=== PATIENT | female | born 1965 | race Caucasian/White ===

== ENCOUNTER → 2020-08-22 08:15 | Outpatient (CLI) | payer OTHER, SELFPAY ==
--- NOTE | ~2020-08-22 | XR_ITS ---
EXAMINATION: XR chest 2V DATE: 08/22/2020 08:25 INDICATION: Left-sided chest pain TECHNIQUE: PA and lateral views of the chest are obtained. COMPARISON: 09/09/2019 FINDINGS: The lungs are free of acute opacities. There is no pleural effusion or pneumothorax. The ca rdiomediastinal silhouette is normal. Surgical clips in the right upper quadrant are likely from prio r cholecystectomy. IMPRESSION: 1. No acute cardiopulmonary abnormality. Reviewed, dictated and finalized at location A. 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
== END ==
PROVIDERS: PCP Family Medicine; Visit Provider Family Medicine
DX: R07.9 Chest pain, unspecified (principal)
CPT/HCPCS: 71046

== ENCOUNTER → 2020-09-11 16:50 | Outpatient (CLI) | payer OTHER, SELFPAY ==
--- NOTE | ~2020-09-11 | MM_ITS ---
EXAMINATION: MM screening matthew BI w earnestine HISTORY: Screening mammogram TECHNIQUE: Craniocaudal and mediolateral oblique 3-D tomosynthesis images were obtained and synthetic 2-D images were generated. CAD analysis was submitted and interpreted. COMPARISON: No prior mammogram is available for comparison at this institution. BREAST PARENCHYMAL COMPOSITION: There are scattered areas of fibroglandular density. FINDINGS: There are a few benign calcifications on the right. There is no evidence of suspicious mass , calcification, or architectural distortion to suggest malignancy in either breast. There has been n o suspicious interval change. IMPRESSION: 1. No mammographic evidence of malignancy. 2. Recommend routine screening mammography in one year. BI-RADS Category 2: Benign finding(s). Reviewed, dictated and finalized at location A. 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
== END ==
PROVIDERS: PCP Family Medicine; Visit Provider Family Medicine
DX: Z12.31 Encounter for screening mammogram for malignant neoplasm of breast (principal)
CPT/HCPCS: 77063; 77067

== ENCOUNTER → 2020-09-18 13:24 | Outpatient (CLI) | payer OTHER, SELFPAY ==
--- NOTE | ~2020-09-18 | CT_ITS ---
EXAMINATION: CT chest wo con DATE: 09/18/2020 13:43 INDICATION: Pleurisy TECHNIQUE: Computed tomography (CT) of the chest was performed without intravenous contrast. The dose -length product was 184.56 mGy-cm. Automated exposure control and iterative reconstruction technique were employed. COMPARISON: Chest dated 08/22/2020 FINDINGS: No significant pleural or pericardial effusion. Heart size normal. No thoracic lymphadenopa thy. No endobronchial lesion. No pneumothorax. No focal airspace consolidation. No suspicious pulmona ry nodules or masses. There are cholecystectomy clips. IMPRESSION: 1. No acute cardiopulmonary disease. No findings to account for patient's symptoms. Reviewed, dictated and finalized at location B. IATIVE SENIOR NP IMPRESSION: 1. No acute cardiopulmonary disease. No findings to account for patient's sympt oms.
== END ==
PROVIDERS: PCP Family Medicine; Visit Provider Family Medicine
DX: R09.1 Pleurisy (principal)
CPT/HCPCS: 71250

== ENCOUNTER → 2021-10-02 13:26 | Outpatient (CLI) | payer OTHER, SELFPAY ==
--- NOTE | ~2021-10-02 | MM_ITS ---
EXAMINATION: MM screening matthew BI w earnestine HISTORY: Screening mammogram TECHNIQUE: Craniocaudal and mediolateral oblique 3-D tomosynthesis images were obtained and synthetic 2-D images were generated. CAD analysis was submitted and interpreted. COMPARISON: 09/07/2020, 09/09/2019, 07/30/2018 bilateral screening mammogram examinations BREAST PARENCHYMAL COMPOSITION: There are scattered areas of fibroglandular density. FINDINGS: There is no evidence of suspicious mass, calcification, or architectural distortion to sugg est malignancy in either breast. There has been no suspicious interval change. IMPRESSION: 1. No mammographic evidence of malignancy. 2. Recommend routine screening mammography in one year. BI-RADS Category 1: Negative Reviewed, dictated and finalized at location A. 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
== END ==
PROVIDERS: PCP Family Medicine; Visit Provider Family Medicine
DX: Z12.31 Encounter for screening mammogram for malignant neoplasm of breast (principal)
CPT/HCPCS: 77063; 77067

== ENCOUNTER → 2022-09-24 14:09 | Outpatient (CLI) | payer OTHER, SELFPAY ==
--- NOTE | ~2022-09-24 | DEXA_ITS ---
Bone Density Report Name: JANINA IZAGUIRRE Age: 57 Sex: Female Ethnicity: White Date of : 1965 Indication: postmenopausal; screening for osteoporosis; hysterectomy; Referring Provider: INOCENCIA RIVAS Study: Bone densitometry was performed. Exam Date: September 24, 2022 Accession number: [id number] Bone Density: Region BMD T-score Z-score Classification AP Spine (L1-L4) 0.962 -0.8 0.6 Normal Femoral Neck (Left) 0.743 -1.0 0.3 Normal Total Hip (Left) 0.897 -0.4 0.6 Normal Femoral Neck (Right) 0.695 -1.4 -0.1 Osteopenia Total Hip (Right) 0.889 -0.4 0.5 Normal Total Hip Mean 0.893 -0.4 0.6 Normal World Health Organization criteria for BMD impression classify patients as: Normal (T-score at or above -1.0), Osteopenia (T-score between -1.0 and -2.5), or Osteoporosis (T-score at or below -2.5). 10-year Fracture Risk(1): Major Osteoporotic Fracture 7.6% Hip Fracture 0.6% Reported Risk Factors: [place] (), Neck BMD=0.695, BMI=28.0 (1) FRAX(R) Version 3.08. Fracture probability calculated for an untreated patient. Fracture probability may be lower if the patient has received treatment. Clinical Information Provided by Patient: Has used the following medications: Vitamin D Has the following medical conditions: Hysterectomy, CERVICAL CA - AGE 31 Patient maximum height was 67 Menopause Age: 31 No regular weight bearing exercise Drinks caffeinated beverages Onset of menses at age 9 Number of children 2 Impression: The patient has low bone mass, based on the Right Femoral Neck T-score. The patient has an estimated ten-year risk of hip fracture of 0.6% and an estimated ten-year risk of major fracture of 7.6%, based on the WHO FRAX algorithm. Discussion: BONE DENSITY IS LOW AT ONE OR MORE SKELETAL SITES. This patient's lowest T-score is low at one or more skeletal sites. It meets the World Health Organization's (WHO) criteria for ?low bone mass? (T-score between -1.0 and -2.5). The patient's 10-year risk of fracture as calculated by FRAX is less than the threshold where pharmacological therapy is recommended by the National Osteoporosis Foundation (NOF). However, all treatment decisions require clinical judgment and consideration of individual patient factors, including patient preferences, comorbidities, previous drug use, risk factors not captured in the FRAX model (e.g., frailty, falls, vitamin D deficiency, increased bone turnover, interval significant decline in bone density) and possible under or overestimation of fracture risk by FRAX. The patient should follow a healthful lifestyle (good nutrition with adequate calcium and vitamin D, and appropriate weight-bearing exercise). Follow-Up: Consider repeating this study in 2 to 3 years to reassess this patient's status, or soon
== END ==
PROVIDERS: PCP Family Medicine; Visit Provider Family Medicine
DX: Z78.0 Asymptomatic menopausal state (principal); M85.851 Other specified disorders of bone density and structure, right thigh
CPT/HCPCS: 77080

== ENCOUNTER → 2022-10-02 13:22 | Outpatient (CLI) | payer OTHER, SELFPAY ==
--- NOTE | ~2022-10-02 | MM_ITS ---
EXAMINATION: MM screening matthew BI w earnestine HISTORY: Screening TECHNIQUE: Craniocaudal and mediolateral oblique 3-D tomosynthesis images were obtained and synthetic 2-D images were generated. CAD analysis was submitted and interpreted. COMPARISON: Comparison to multiple prior studies sequentially, with oldest reviewed study dated 12/2015. BREAST PARENCHYMAL COMPOSITION: There are scattered areas of fibroglandular density. FINDINGS: There is no evidence of suspicious mass, calcification, or architectural distortion to sugg est malignancy in either breast. There has been no suspicious interval change. IMPRESSION: 1. No mammographic evidence of malignancy. 2. Recommend routine screening mammography in one year. BI-RADS Category 1: Negative Reviewed, dictated and finalized at location B. INTEGRATION ARCHITECT
== END ==
PROVIDERS: PCP Family Medicine; Visit Provider Family Medicine
DX: Z12.31 Encounter for screening mammogram for malignant neoplasm of breast (principal)
CPT/HCPCS: 77063; 77067

== ENCOUNTER 2023-08-10 09:24 | Outpatient (CLI) | payer OTHER, SELFPAY ==
--- NOTE | ~2023-08-10 | NM_ITS ---
NM stress w perf spect multi Procedure: The patient was stressed using Modified Darwin protocol. Prior to the end of exercise 10.4 mCi Tc 99m IV administered. Rest imaging performed following administration of 31.8 mCi Tc 99m IV. Images were reformatted into short axis, horizontal and vertical long axis sections for visual and q uantitative analysis. Indication: Wrist pain Comparison: None Findings: Computer assisted qualitative and quantitative analysis of the immediate and delayed images revealed normal left ventricular perfusion without evidence of fixed or reversible perfusion abnorma lity to suggest ischemia or infarction. Normal left ventricular cavity size, wall motion and ejectio n fraction. Left ventricular ejection fraction measures 81%. Impression: 1: No scintigraphic evidence of resting or stress induced perfusion abnormality. 2: Normal left ventricle ejection fraction measuring 81 %. Reviewed, dictated and finalized at location B. Impression: 1: No scintigraphic evidence of resting or stress induced perfusion abnormality . 2: Normal left ventricle ejection fraction measuring 81 %.
--- NOTE | 2023-08-10 09:29 | EST_ITS ---
Patient Info Name: Nirmala Trevizo Age: 58 years : 1965 Gender: Female Ht: 67 in Wt: 164 lbs BSA: 1.89 m2 HR: 58 bpm BP: 104 / 64 mmHg Heart Rhythm: Sinus Rhythm Exam Date: 08/10/2023 10:47 AM Exam Location: [facility] Patient Status: Outpatient Admit Date: 08/10/2023 Staff Ordering Physician: Sj Maria PA-C Attending Provider: Sj Maria PA-C Exercise Technologist: Alexandrea Preciado CT Exercise Physician: Vargas Fernandez DO Exam Type: CA stress test treadmill w NM Study Info Indications R07.89 - Other chest pain A nuclear stress test was performed. Summary 1. 1. Negative Darwin exercise stress test for ischemic ST changes by ECG criteria. 2. 2. Reduced functional capacity, achieving 7 METs of workload. 3. 3. Appropriate HR response to exercise. 4. 4. Appropriate HR recovery at 1 minute post exercise. 5. 5. Transient atrial tachycardia at peak exercise. 6. 6. Nuclear scan to follow and will be reported separately. Please correlate with it. 7. 7. Patient informed of the above results. Protocol: [facility] Stress ECG Details Stage: REST Duration (min): 0 min : 59 sec Speed (mph): 0.0 Grade (%): 0 HR (bpm): 58 SBP (mmHg): 104 DBP (mmHg): 61 METS: --- Stage: REST Duration (min): 6 min : 51 sec Speed (mph): 0.0 Grade (%): 0 HR (bpm): 86 SBP (mmHg): 104 DBP (mmHg): 61 METS: --- Stage: STAGE 1 Duration (min): 1 min : 0 sec Speed (mph): 1.7 Grade (%): 10 HR (bpm): 93 SBP (mmHg): 104 DBP (mmHg): 61 METS: --- Stage: STAGE 1 Duration (min): 2 min : 0 sec Speed (mph): 1.7 Grade (%): 10 HR (bpm): 102 SBP (mmHg): 104 DBP (mmHg): 61 METS: --- Stage: STAGE 1 Duration (min): 3 min : 0 sec Speed (mph): 1.7 Grade (%): 10 HR (bpm): 113 SBP (mmHg): 104 DBP (mmHg): 61 METS: --- Stage: STAGE 2 Duration (min): 1 min : 0 sec Speed (mph): 2.5 Grade (%): 12 HR (bpm): 125 SBP (mmHg): 122 DBP (mmHg): 70 METS: --- Stage: STAGE 2 Duration (min): 2 min : 0 sec Speed (mph): 2.5 Grade (%): 12 HR (bpm): 144 SBP (mmHg): 167 DBP (mmHg): 72 METS: --- Stage: STAGE 1 Duration (min): 3 min : 0 sec Speed (mph): 1.7 Grade (%): 10 HR (bpm): 113 SBP (mmHg): 104 DBP (mmHg): 61 METS: --- Stage: STAGE 2 Duration (min): 3 min : 0 sec Speed (mph): 2.5 Grade (%): 12 HR (bpm): 177 SBP (mmHg): 167 DBP (mmHg): 72 METS: --- Stage: RECOVERY Duration (min): 1 min : 0 sec Speed (mph): 0.0 Grade (%): 0 HR (bpm): 127 SBP (mmHg): 174 DBP (mmHg): 77 METS: --- Stage: RECOVERY Duration (min): 1 min : 59 sec Speed (mph): 0.0 Grade (%): 0 HR (bpm): 99 SBP (mmHg): 174 DBP (mmHg): 77 METS: --- Stage: RECOVERY Duration (min): 2 min : 58 sec Speed (mph): 0.0 Grade (%): 0 HR (bpm): 89 SBP (mmHg): 114 DBP (mmHg): 72 METS: --- Rest HR: 86 bpm Peak HR: 176 bpm Rest Sys BP: 104 mmHg Peak Sys BP:
== END 2023-08-10 09:25 | disposition home or self-care (01) ==
PROVIDERS: PCP Family Medicine; Visit Provider Physician Assistant
DX: R07.9 Chest pain, unspecified (principal)
CPT/HCPCS: 78452; 93017; A9502

== ENCOUNTER 2023-10-08 13:35 | Outpatient (CLI) | payer OTHER, SELFPAY ==
--- NOTE | ~2023-10-08 | MM_ITS ---
EXAMINATION: MM screening matthew BI w earnestine HISTORY: Screening mammogram TECHNIQUE: Craniocaudal and mediolateral oblique 3-D tomosynthesis images were obtained and synthetic 2-D images were generated. CAD analysis was submitted and interpreted. COMPARISON: 10/02/2022, 10/02/2021 bilateral screening mammogram examinations BREAST PARENCHYMAL COMPOSITION: There are scattered areas of fibroglandular density. FINDINGS: There is no evidence of suspicious mass, calcification, or architectural distortion to sugg est malignancy in either breast. There has been no suspicious interval change. IMPRESSION: 1. No mammographic evidence of malignancy. 2. Recommend routine screening mammography in one year. BI-RADS Category 1: Negative Reviewed, dictated and finalized at location A. YCOMB DECAPPER
== END 2023-10-08 13:36 ==
PROVIDERS: PCP Family Medicine
DX: Z12.31 Encounter for screening mammogram for malignant neoplasm of breast (principal)
CPT/HCPCS: 77063; 77067

== ENCOUNTER 2024-02-11 07:18 | Day surgery (SDC) | payer OTHER, SELFPAY ==
[2023-11-30 10:54] VITALS: BMI 28.0
[2023-12-08 10:42] VITALS: BMI 26.2
[2023-12-31 10:41] VITALS: BMI 26.2
[2024-01-28 09:50] VITALS: BMI 26.2
[2024-02-11 08:27] VITALS: BP 112/79; PULSE 65; RESP 16; TEMP 36.7; O2SAT 98; BMI 26.0
[2024-02-11] MEDS: LACTATED RINGERS 1,000 ML 150 ML IV CONT (08:31)
--- NOTE | 2024-02-11 08:42 | PM.HPGS ---
History of Present Illness History of Present Illness Consent: Risks, benefits, and alternatives have been discussed and questions answered. Patient agrees to proceed with procedure. Chief complaint: Screening for neoplasm of colon Narrative: Nirmala Trevizo is a 58 year old female presents for screening colonoscopy. Patient's current weight appetite bowel movements are normal. She denies abdominal pain. She has had no bleeding. Family history noncontributory previous colonoscopy 10 years ago was unremarkable as well. Review of Systems Review of Systems: Review of Systems is noncontributory. [facility] Past Medical History Medical History Arthralgia Arthralgia Gastro-esophageal reflux disease without esophagitis Keloid scar of skin Nail abnormalities Paresthesia and pain of extremity Right lateral epicondylitis Sciatica, right side Tick bite Wart on thumb Surgical History Surgical History H/O: hysterectomy Hx of cholecystectomy Family History Family History Grandparent Diabetes mellitus Family history of cardiovascular disease Sibling Family history of pancreatic cancer Mother Family history of thyroid disease Family history of lung cancer Father Family history of chronic obstructive pulmonary disease Other Cerebrovascular accident Family history of elevated blood lipids Hypertension Social History Social History Smoking status: Never smoker Alcohol intake: current Drinks per week: 0 Alcohol use details: pt states rarely Substance use: never Substance use type: does not use Lack of Transportation: No Lack of Food: Never True Current Housing: I Have Housing Concerned About Future Housing: No Difficulty Paying Gas/Electric Bills: No Difficulty Paying for Meds: No Currently Unemployed: No Education: Master's Degree or Higher Difficulty w/ Childcare or Family Care: No Living arrangements: alone Spiritual care concerns: No Meds Home Medications and Allergies Home Medications Medication Instructions Recorded Confirmed Type ergocalciferol (vitamin D2) 1,250 50,000 unit PO WEEKLY #14 caps 07/24/21 02/11/24 Rx mcg (50,000 unit) capsule cyanocobalamin (vitamin B-12) 1,000 mcg subcut MONTHLY #1 mL 06/11/22 02/11/24 Rx 1,000 mcg/mL injection solution estradiol 0.01% (0.1 mg/gram) 0.1 g vaginal DAILY 10/08/22 02/11/24 History vaginal cream estradiol 0.05 mg/24 hr semiweekly 1 patch transdermal 2XW 10/08/22 02/11/24 History transdermal patch naproxen 500 mg tablet See Rx Instructions .Route 12/08/23 02/11/24 History .COMPLEX PRN Pain Allergies Allergy/AdvReac Type Severity Reaction Status Date / Time Sulfa (Sulfonamide Allergy Intermediate Rash Verified 02/11/24 08:11 Antibiotics) Vital Signs Vital Signs - 24 hr 02/11/24 08:27 Temperature 98.1 F Pulse Rate 65 Respiratory Rate 16 Blood Pressure 112/79 Pulse Oximetry 98 Oxygen Delivery Room Air Exam Narrative: Physical exam reveals patient to be alert signs stable. HEENT exam is unremarkable. Patient is anicteric. Lungs are clear to auscultation and percussion. Heart is without murmur or extra sounds. Abdomen bowel sounds are present soft nontender with no hepatosplenomegaly. Digital external rectal exam normal. Assessment and Plan Assessment and plan (1) Encounter for screening colonoscopy: Code(s): Z12.11 - Encounter for screening for malignant neoplasm of colon Status: Acute Assessment and Plan: Patient presents today for screening colonoscopy. She appears to be at average risk for colon polyps.
--- NOTE | 2024-02-11 08:47 | WPDANESEPPF ---
Anes - Initial Pre Proc Eval Procedure: Operation Date: 02/11/24 09:30 Proposed Procedures p Screening Colonoscopy - Leonel Schmid MD Date/Time: 02/11/24 08:47 Surgeon: Leonel Schmid MD Pre Op Diagnosis: Screening for neoplasm of colon Patient Data Age: 58 Gender: F Height: 1.7 m Weight: 75.5 kg Last Vital Signs Temp 36.7 C 02/11/24 08:27 Pulse 65 02/11/24 08:27 Resp 16 02/11/24 08:27 BP 112/79 02/11/24 08:27 Pulse Ox 98 02/11/24 08:27 O2 Del Method Room Air 02/11/24 08:27 Allergies Allergy/AdvReac Type Severity Reaction Status Date / Time Sulfa (Sulfonamide Allergy Intermediate Rash Verified 02/11/24 08:11 Antibiotics) Home Medications Medication Instructions Recorded Confirmed Type ergocalciferol (vitamin D2) 1,250 50,000 unit PO WEEKLY #14 caps 07/24/21 02/11/24 Rx mcg (50,000 unit) capsule cyanocobalamin (vitamin B-12) 1,000 mcg subcut MONTHLY #1 mL 06/11/22 02/11/24 Rx 1,000 mcg/mL injection solution estradiol 0.01% (0.1 mg/gram) 0.1 g vaginal DAILY 10/08/22 02/11/24 History vaginal cream estradiol 0.05 mg/24 hr semiweekly 1 patch transdermal 2XW 10/08/22 02/11/24 History transdermal patch naproxen 500 mg tablet See Rx Instructions .Route 12/08/23 02/11/24 History .COMPLEX PRN Pain Patient hx anesthesia problems: none Family hx anesthesia problems: none Results Review: All pre-operative results and documents have been reviewed as part of the pre-operative evaluation. [facility] Past Medical History Medical History (Updated 02/11/24 @ 08:48 by Crispin Walker DO) Anxiety Arthralgia Arthralgia Gastro-esophageal reflux disease without esophagitis Keloid scar of skin Nail abnormalities Paresthesia and pain of extremity Right lateral epicondylitis Sciatica, right side Tick bite Wart on thumb Surgical History Surgical History H/O: hysterectomy Hx of cholecystectomy Family History Family History Grandparent Diabetes mellitus Family history of cardiovascular disease Sibling Family history of pancreatic cancer Mother Family history of thyroid disease Family history of lung cancer Father Family history of chronic obstructive pulmonary disease Other Cerebrovascular accident Family history of elevated blood lipids Hypertension Social History Social History Smoking status: Never smoker Alcohol intake: current Drinks per week: 0 Alcohol use details: pt states rarely Substance use: never Substance use type: does not use Lack of Transportation: No Lack of Food: Never True Current Housing: I Have Housing Concerned About Future Housing: No Difficulty Paying Gas/Electric Bills: No Difficulty Paying for Meds: No Currently Unemployed: No Education: Master's Degree or Higher Difficulty w/ Childcare or Family Care: No Living arrangements: alone Spiritual care concerns: No Anes - Eval Final PreProcedure Day of Procedure 02/11/24 08:47 Patient weight: overweight Heart: regular rate and rhythm Lungs: clear to auscultation Airway: Mallampati scale class II Neurological: alert and oriented Last oral intake: >/= 8 hours ASA classification: II Emergent: no Anesthetic plan: proceed Anesthesia type and monitoring: general GIVS and standard monitoring Results Review: All pre-operative results and documents have been reviewed as part of the pre-operative evaluation. Informed Consent: The patient's anesthetic plan and its attendant risks and benefits were discussed with the patient/family/POA. Questions were solicited and answers provided to the satisfaction of the patient/family/POA.
[2024-02-11 10:11] VITALS: BP 121/76; PULSE 66; RESP 15; O2SAT 99
[2024-02-11 10:21] VITALS: BP 116/59; PULSE 60; RESP 16; O2SAT 100
[2024-02-11 10:31] VITALS: BP 120/73; PULSE 60; RESP 16; O2SAT 100
--- NOTE | 2024-02-11 10:43 | SUR.PHASEII ---
Pt complaining of sore throat and phlegm in recovery after colonoscopy. No oral airway placed during procedure. This RN encouraged pt to push fluids today and to call physician if concerned about anything or if develops fever. Dr. Tapia notified, no further orders at this time. Pt A&Ox4, VSS in recovery. Pt states understands discharge instructions, wheeled out of ASC in no apparent distress.
--- NOTE | 2024-02-11 11:28 | WPDANESPN ---
Anes - Prog Note Post-Op Date/Time: 02/11/24 11:28 Cardiovascular status: normal Respiratory status: normal Airway patency: baseline Mental status: baseline Post-Op hydration status: normal Vital Signs: Last Vital Signs Temp 36.7 C 02/11/24 08:27 Pulse 60 02/11/24 10:31 Resp 16 02/11/24 10:31 BP 120/73 02/11/24 10:31 Pulse Ox 100 02/11/24 10:31 O2 Del Method Room Air 02/11/24 10:31 Pain Score (VAS): 0 I/O: Intake & Output 02/10/24 02/11/24 02/11/24 23:59 07:59 15:59 Intake Total 500 Balance 500 Post-procedural complaints: none Patient Feedback: Patient satisfied with anesthetic care. Other Findings: Patient vital signs back to baseline. Patient denies nausea and vomiting. Patient's pain under control. Patient OK for discharge.
== END 2024-02-11 10:41 | disposition home or self-care (01) ==
PROVIDERS: PCP Family Medicine; Visit Provider Internal Medicine Gastroenterology
PROC: 0DJD8ZZ Inspection of Lower Intestinal Tract, Via Natural or Artificial Opening Endoscopic (ICD-10-PCS; CPT 45378; principal; 2024-02-11 09:30)
DX: Z12.11 Encounter for screening for malignant neoplasm of colon (principal); K57.30 Diverticulosis of large intestine without perforation or abscess without bleeding; K64.8 Other hemorrhoids
CPT/HCPCS: 45378

== ENCOUNTER 2024-10-13 10:48 | Outpatient (CLI) | payer OTHER, SELFPAY ==
--- NOTE | ~2024-10-13 | MM_ITS ---
EXAMINATION: MM screening [facility] BI w earnestine HISTORY: Screening TECHNIQUE: Craniocaudal and mediolateral oblique 3-D tomosynthesis images were obtained and synthetic 2-D images were generated. CAD analysis was submitted and interpreted. COMPARISON: 10/08/2023 and dating back to 09/11/2020 BREAST PARENCHYMAL COMPOSITION: There are scattered areas of fibroglandular density. FINDINGS: Bulky calcifications within the upper slightly inner right breast, stable and benign in nemesio earance Stable parenchymal pattern without suspicious microcalcifications, architectural distortion, discrete masses or significant asymmetry. IMPRESSION: 1. No mammographic evidence of malignancy. 2. Recommend routine screening mammography in one year. BI-RADS Category 2: Benign finding(s). Reviewed, dictated and finalized at location A. 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
== END 2024-10-13 10:49 | disposition home or self-care (01) ==
LOC: MICIMG 10:48
PROVIDERS: PCP Family Medicine; Visit Provider Family Medicine
DX: Z12.31 Encounter for screening mammogram for malignant neoplasm of breast (principal)
CPT/HCPCS: 77063; 77067

== ENCOUNTER 2025-04-13 10:16 | Outpatient (CLI) | payer OTHER, SELFPAY ==
--- NOTE | ~2025-04-13 | CT_ITS ---
Non-contrast CT scan of the Abdomen Clinical indication: Adrenal mass Technique: 2.5 mm axial scans were obtained through the abdomen without intravenous or oral contrast . Dose reduction technique was used on this scan by utilizing automated exposure control and iterativ e reconstruction technique. The dose-length product (DLP) was 512.64 mGy-cm. Findings: Images through the lung bases reveal no abnormalities. The liver, spleen, pancreas, kidneys, and right adrenal gland appear normal. Cholecystectomy clips ar e present. 1.5 cm low-density left adrenal nodule is compatible with adenoma There is no aortic aneur ysm. Visualized bowel loops are unremarkable. No ascites. Impression: 1.5 cm left adrenal adenoma. Reviewed, dictated and finalized at location M. Impression: 1.5 cm left adrenal adenoma.
== END 2025-04-13 10:17 | disposition home or self-care (01) ==
LOC: MICIMG 10:17
PROVIDERS: PCP Family Medicine; Visit Provider Family Medicine
DX: E27.8 Other specified disorders of adrenal gland (principal); D35.02 Benign neoplasm of left adrenal gland
CPT/HCPCS: 74150

== ENCOUNTER 2025-06-12 13:49 | Outpatient (CLI) | payer OTHER, SELFPAY ==
--- NOTE | ~2025-06-12 | DEXA_ITS ---
Bone Density Report Name: JANINA IZAGUIRRE Age: 60 Sex: Female Ethnicity: White Date of : 1965 Indication: postmenopausal; screening for osteoporosis; history of glucocorticoids; hysterectomy; Referring Provider: INOCENCIA RIVAS Study: Bone densitometry was performed. Exam Date: June 12, 2025 Accession number: [id number] Bone Density: Region BMD T-score Z-score Classification AP Spine(L1-L4) 0.984 -0.6 1.0 Normal Femoral Neck (Left) 0.732 -1.1 0.3 Osteopenia Total Hip (Left) 0.910 -0.3 0.8 Normal Femoral Neck (Right) 0.719 -1.2 0.2 Osteopenia Total Hip (Right) 0.911 -0.3 0.8 Normal Total Hip Mean 0.910 -0.3 0.8 Normal World Health Organization criteria for BMD impression classify patients as: Normal (T-score at or above -1.0), Osteopenia (T-score between -1.0 and -2.5), or Osteoporosis (T-score at or below -2.5). 10-year Fracture Risk(1): Major Osteoporotic Fracture 12% Hip Fracture 1.0% Reported Risk Factors: [place] (), Neck BMD=0.719, BMI=27.8, glucocorticoids (1) FRAX(R) Version 3.08. Fracture probability calculated for an untreated patient. Fracture probability may be lower if the patient has received treatment. Previous Exams: -- Region Exam Age BMD T-score BMD Change BMD Change Date g/cm2 vs Baseline vs Previous -- AP Spine (L1-L4) 06/12/2025 60 0.984 -0.6 2.2% 2.2% 09/24/2022 57 0.962 -0.8 Total Hip(Left) 06/12/2025 60 0.910 -0.3 1.4% 1.4% 09/24/2022 57 0.897 -0.4 Total Hip(Right) 06/12/2025 60 0.911 -0.3 2.4% 2.4% 09/24/2022 57 0.889 -0.4 -- *Denotes significance at 95% confidence level, LSC for AP Spine = 0.022 g/cm2, LSC for Total Hip = 0.027 g/cm2 Clinical Information Provided by Patient: Has taken Glucocorticoids Has used the following medications: HRT (i.e. estrogen/hormone therapy), Vitamin D Has the following medical conditions: Hysterectomy Patient maximum height was 67 Menopause Age: 31 No regular weight bearing exercise Drinks caffeinated beverages Onset of menses at age 9 Number of children 2 Impression: The patient has low bone mass, based on the Right Femoral Neck T-score. The patient has an estimated ten-year risk of hip fracture of 1% and an estimated ten-year risk of major fracture of 12%, based on the WHO FRAX algorithm. The patient has risk factors, including: history of glucocorticoid therapy. No significant bone loss was observed. Discussion: BONE DENSITY IS LOW AT ONE OR MORE SKELETAL SITES. This patient's lowest T-score is low at one or more skeletal sites. It meets the World Health Organization's (WHO) criteria for ?low bone mass? (T-score between -1.0 and -2.5). The patient's 10-year risk of fracture as calculated by FRAX is less than the threshold where pharmacological therapy is recommended by the National Osteoporosis Foundation (NOF). However, all treatment decisions require clinical judgment and consideration of individual patient factors, including patient preferences, comorbidities, previous drug use, risk factors not captured in the FRAX model (e.g., frailty, falls, vitamin D deficiency, increased bone turnover, interval significant decline in bone density) and possible under or overestimation of fracture risk by FRAX. The patient should follow a healthful lifestyle (good nutrition with adequate calcium and vitamin D, and appropriate weight-bearing exercise). Follow-Up: Consider repeating this study in 2 to 3 years to reassess this patient's status, or sooner if there is some new clinical indication. Reported by: SHARON on 06/12/2025 2:17:00 PM. Reviewed, dictated and finalized at location A.
== END 2025-06-12 13:50 | disposition home or self-care (01) ==
LOC: MICIMG 13:51
PROVIDERS: PCP Family Medicine; Visit Provider Family Medicine
DX: Z13.820 Encounter for screening for osteoporosis (principal); M85.852 Other specified disorders of bone density and structure, left thigh; M85.851 Other specified disorders of bone density and structure, right thigh
CPT/HCPCS: 77080

== ENCOUNTER 2025-08-16 00:40 | Day surgery (SDC) | payer OTHER, SELFPAY ==
[2025-08-07 15:02] VITALS: BMI 27.7
--- OUTSIDE RECORDS SUMMARY | 2025-08-16 00:42 | XMS_ITS | Data Portability ---
Author Organization Proficiency, [facility] Address [address] [address] Care Team Providers Care Infant Babysitter Name Role Phone ANNALEE AMATO Primary Care Provider Unavailabl e Assessment No assessment recorded. Plan of Treatment Reminders Order Date Submit Date Provider Last Modified By Organization Details Last Modified Time Details Appointments None record ed. Lab None record ed. Referral None record ed. Procedures None record ed. Surgeries None record ed. Imaging None record ed. Medication Orders None record ed. Patient TargetsNo targets recorded. Patient InstructionsNo instructions recorded. Reason for Referral None Reported. Results Created Date Observation Date Name Description Value Unit Range Abnormal Flag Note LastModifiedBy Organization Detail LastModifiedTime 12/12/19 21 10/05/2019 MRI, lumba r spine , w/o contr ast No observ ation record ed. BARCODE Not Available 2020 14:48:45 12/12/19 21 10/05/2019 MRI, cervi beatriz spine , w/o contr ast No observ ation record ed. BARCODE Not Available 2020 14:48:45 12/12/19 21 12/05/2020 MRI, elbow , w/o contr ast No observ ation record ed. BARCODE Not Available 2020 14:48:45 Result Notes None recorded. Problems No Known Problems Procedures Surgical History Date Name Laterality Status Provider Name and Address Organization Details Recorded Time 02/17/20 17 cholecystectomy completed Gema harris Picket 12/12/2020 12:14:31 04/18/19 97 partial hysterectomy completed [employer] [facility] 12/12/2020 12:15:05 Imaging Results None recorded. Procedure Notes None recorded. Medical Equipment None Reported. Allergies Allergen ID Allergen Name Allergen Category Reaction Reaction Severity Criticality Documentation Date Start Date Code Code System Note Provider Name and Address Organization Details Recorded Time 21823 Substance with sulfonami de structure and antibacte rial mechanism of action (substanc e) medicatio n Not available Not available Not available 12/12/2020 [id number] SNOMED Gema Bloom [facility], [facility] 09:17:19 Medications Name Sig Start Date Stop Date Status Note LastModified by Organization Details LastModified Time meloxicam 15 mg tablet TAKE 1 TABLET BY MOUTH ONCE DAILY WITH FOOD 02/14 completed Not Available Not Available Not Available phentermine 37.5 mg tablet TK / T PO D active Not Available Not Available No t Available hydrocodone 10 mg-acetamin ophen 325 mg tablet TAKE 1 TABLET BY MOUTH EVERY 6 HOURS NEEDED 02/14 completed Not Available Not Available Not Available bupropion HCl SR 100 mg tablet,12 hr sustained-r elease TAKE 1 TABLET BY MOUTH DAILY active Not Available Not Available No t Available betamethaso ne dipropionat e 0.05 % topical cream active Not Available Not Available Not Available mupirocin 2 % topical ointment EDWIN TO FINGER TID . WASH AREA BEFORE APPLICATI ON WITH SOAP AND WATER OR HYDROGEN PEROXIDE 02/14 completed Not Available Not Available Not Available ergocalcife rol (vitamin D2) 1,250 mcg (50,000 unit) capsule TAKE 1 CAPSULE BY MOUTH WEEKLY active Not Available Not Available No t Available diazepam 10 mg tablet Take 1 tablet(s) 30 mins PRIOR to appointme nt PRN and repeat as directed by physician . 02/14 completed Not Available Not Available Not Available finasteride 5 mg tablet active Not Available Not Available Not Available Vitals Date Recorded Body height Body mass index (BMI) Body weight Heart rate Body temperature Systolic And Diastolic Provider Name and Address Organization Details Last Updated DateTime 1 170.18 cm 22.7 kg/m2 85571.8 9 g 70 /min 97.3 [degF] 131/80 mm[Hg] Gema Bloom [facility], [facility] 09:17:02 Date Recorded Body height Body mass index (BMI) Body weight Provider Name and Address Organization Details Last Updated DateTime 02/14/2021 170.18 cm 22.7 kg/m2 25999.89 g [employer] [facility] 02/14/2021 08:55:59 Social History Question Answer Notes LastModified by Organizat ion Details LastModified Time Tobacco Smoking Status Never Smoker Gema payne [employer] [facility], [employer] 12/12/2020 12:13:18 Auto Related Injury? No Information not available 12/12/2020 Which Of Your Hands Is Dominant? Right Information not available 12/12/2020 Marital Status Single [email or web address] Informatio n not available 12/12/2020 If Injured, Is Litigation Ongoing? No [email or web address] Information not available 12/12/2020 Work Related Injury? No Information not available 12/12/2020 Sex: Unknown Functional Status Question Answer Note LastModified by Organizat ion Details LastModified Time What is your level of alcohol consumption? Occasional [email or web address] Information not available 12/12/2020 Are you currently employed? Yes [email or web address] Information not available 12/12/2020 Mental Status None recorded. Family History Nothing Reported. Medical History Condition Response Other Cancer N HIV or AIDS N Coronary Artery Disease N Gout N Kidney Stones Y Hyperthyroidism N Breast Cancer N Head Trauma/Injury N Hernia N Lung Cancer N Blood Clots N Depression N COPD N Lung Disease N Hypothyroidism N Pacemaker N Anxiety Disorder N Arthritis Y Kidney Cancer N Cancer N Stroke N Leg or Foot Ulcers N Neck Injury N High Cholesterol N Skin Cancer N Liver Disease N Rheumatoid Arthritis N Fibromyalgia N Headaches N Concussion N Kidney Disease N Heart Problems N Prostate Cancer N Migraines N Thyroid Problems N Autoimmune Disorder N Anemia N Multiple Sclerosis N Tendon Tear N Ulcers N Heart Attack (CT) N Diabetes N Bleeding Disorder N Seizures/Epilepsy N Tuberculosis N Urinary Tract Infection N Back Problems N Diverticulitis N Asthma N Lupus N Peripheral Vascular Disease N Sleep Disorder N GERD/Reflux Y Hepatitis N Aneurysm N Thyroid Cancer N Heart Disease N Pulmonary Embolism N Hypertension N Osteoporosis N Gynecological HistoryNo gynecological history recorded. Obstetrics History GPAL:G 0 P 0 0 0 0 Past Encounters Encounter ID Performer Location Encounter Start Date Encounter Closed Date Diagnosis/Indication Diagnosis SNOMED-CT Code Diagnosis ICD10 Code Diagnosis IMO Codes Diagnosis Note [id number] Monster Shane MD [facility] [address] [place] [address] 12/12/2020 09:09:39 12/12/2020 11:57:55 [id number] Monster Shane MD [facility] [address] [place] [address] 02/14/2021 08:45:44 02/14/2021 12:54:08 Health Concerns Section Related Observation LastModified by Organization Detai ls LastModified Time None Recorded Concern Status LastModified by Organization Details LastModified Time None Recorded Advance Directives Directive None Recorded Payers Insurance Date Sequence Insurance Name Policy Number Policy De La Torre Covered Member ID De La Torre Member ID Guarantor Name 02/18/2021 1 [facility] [id number] Nirmala Trevizo [id number] Nirmala Trevizo OBGyn Episode No OBEpisode recorded.
--- OUTSIDE RECORDS SUMMARY | 2025-08-16 00:43 | XMS_ITS | Clinical Summary ---
Author Organization [facility] [employer] Address [address] [place] [address] Care Team Providers Care Protector Plate Attacher Name Role Phone Amna Hays MD Primary Care Provider [phone] Source Comments [facility] [employer],non-owned Affiliates and Associated Physician Practices is amultiple site organization consisting of ambulatory clinics and hospital sitesin [place], [place], [place]. This disclosure is being madepursuant to the Care Everywhere program and may not contain all information available regarding this patient. Last updated 18.[facility] [employer] Allergies Active Allergy Reactions Criticality Noted Date Comments Sulfa Drugs Rash Medium 03/31/2018 Medications * Be aware that medications may not be up to date on this document. Alwaysverify current medications with the patient. BuPROPion HCl (WELLBUTRIN PO) Take 100 mg/100 mL by mouth Active vitamin D, ergocalciferol, (DRISDOL) 71408 UNITS capsule Take 50,000 Units by mouth every 30 days Active VIT [id number]- INOS-CHOL IM Active benzonatate (Tessalon) 100 MG capsule Take 1 (one) capsule by mouth 3 times daily as needed for Cough 21 capsule 02/12/2024 Active Active Problems Problem Noted Date Diagnosed Date Anxiety Cervical ca Family History Relation Name Status Comments Father Alive Mother Alive Social History Tobacco Use Types Packs/Day Years Used Date Smoking Tobacco: Never Smokeless Tobacco: Never Alcohol Use Standard Drinks/Week Comments Yes 0 (1 standard drink = 0.6 oz pur e alcohol) AUDIT-C Answer Date Recorded Q1: How often do you have a drink containing alcohol? Never 04/18/2022 Q2: How many drinks containi ng alcohol do you have on a typical day when you are drinking? Patient does not drink Q3: How often do you have si x or more drinks on one occasion? Never 04/18/2022 Comments No Sex and Gender Information Value Date Recorded Sex Assigned at Not on file Legal Sex Female 12:48 PM CDT Gender Identity Not on file Sexual Orientation Not on file Last Filed Vital Signs Vital Sign Reading Time Taken Comments Blood Pressure 124/77 02/12/2024 4:30 PM CDT Pulse 55 02/12/2024 4:30 PM CDT Temperature 36.7 C (98 F) 02/12/2024 12:40 PM CDT Respiratory Rate 11 02/12/2024 4:30 PM CDT Oxygen Saturation 98% 02/12/2024 4:30 PM CDT Inhaled Oxygen Concentration - - Weight 74.4 kg (164 lb) 02/12/2024 10:54 AM CDT Height 167.6 cm (5' 6) 02/12/2024 10:54 AM CDT Body Mass Index 26.47 02/12/2024 10:54 AM CDT Plan of Treatment Health Maintenance Due Date Last Done Comments COLOGUARD (AGES 45-75) - COLON CA SCREENING 1965 COLON MONITORING 1965 COLONOSCOPY - COLON CA SCREENING 1963 CT COLONOGRAPHY - COLON CA SCREENING 1965 Colorectal Cancer Screening 1965 FIT - COLON CA SCREENING 1965 FLEX SIG - COLON CA SCREENING 1965 LIPID TESTING 1965 MAMMOGRAM 1965 HIV SCREENING 1978 HEPATITIS C SCREENING 03/02/1981 DTAP/TDAP/TD VACCINES (1 - Tdap) 1982 PNEUMOCOCCAL VACCINE 50+ (1 of 1 - PCV) 2013 ZOSTER VACCINE (1 of 2) 2013 DEPRESSION SCREENING 10/19/2024 COVID-19 VACCINE (3 - season) 2025 05/06/2021, 04/12/2021 INFLUENZA VACCINE (#1) 2025 2, 08/10/2021, 07/06/2019, Additional history exists Respiratory Syncytial Virus (RSV) Vaccine Pt: or over 60 yrs (1 - 1-dose 75+ series) 2038 HEPATITIS B VACCINE Aged Out No longe r eligible based on patient's age to complete this topic HIB VACCINE Aged Out No longer eligi ble based on patient's age to complete this topic HPV VACCINE Aged Out No longer eligi ble based on patient's age to complete this topic MENINGOCOCCAL (Group B) VACCINE SHARED DECISION-MAKING Aged Out No longer eligible based on patient's age to complete this topic MENINGOCOCCAL GROUPS A/C/Y/W VACCINE Aged Out No longer eligible based on patient's age to complete this topic Insurance [facility] Care Teams Protector Plate Attacher Relationship Specialty Start Date End Date Amna Hays MD [address] [place] [address] PCP - General Family Medicine 02/12/24
--- OUTSIDE RECORDS SUMMARY | 2025-08-16 00:43 | XMS_ITS | Clinical Summary ---
Author Organization [facility] Address [address] [place] [address] Phone Care Team Providers Care Marketing Database Consultant Name Role Phone John Baltazar MD Primary Care Provider Allergies Active Allergy Reactions Criticality Noted Date Comments Sulfa (Sulfonamide Antibiotics) Rash Low 09/18 Medications thymol 4% in 70% ethyl alcohol solution compound Apply to affected nails twice daily. 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 Active cyanocobalamin , vitamin B-12, (VITAMIN B-12 INJECTION) Inject by intramuscular injection. Active buPROPion (WELLBUTRIN) 100 mg tablet Take 100 mg/100 mL by mouth. Active IBUPROFEN ORAL Take by mouth. Active omega-3 fatty acids (FISH OIL ORAL) Take by mouth. Activ e CALCIUM ORAL Take by mouth. Ac tive BIOTIN ORAL Take by mouth. Act clark TURMERIC ORAL Take by mouth. A ctive albuterol sulfate HFA 90 mcg/actuation aerosol inhalerIndicat ions:Bronchiti s Take 2 Puffs by inhalation every 6 hours as needed for Shortness of Breath or Wheezing. 8.5 Gram 5 Active Active Problems Problem Noted Date Diagnosed Date DDD (degenerative disc disease), lumbar 10/24/19 20 Cervical disc disease 10/24/2019 Encounters Date Type Department Care Team Description 07/04/2025 External Device Data STL ABSTRACTION Provider, Abstract from Last 3 Months Family History Medical History Relation Name Comments Hypertension Father Cancer Mother Relation Name Status Comments Father Alive Mother Alive Social History Tobacco Use Types Packs/Day Years Used Date Smoking Tobacco: Never Tobacco Cessation:Counseling Given: Not Answered Alcohol Use Standard Drinks/Week Comments Yes 0 (1 standard drink = 0.6 oz pur e alcohol) rarely Comments Unknown Sex and Gender Information Value Date Recorded Sex Assigned at Not on file Legal Sex Female 11:47 AM CDT Gender Identity Not on file Sexual Orientation Not on file Last Filed Vital Signs Vital Sign Reading Time Taken Comments Blood Pressure 104/70 01/24/2025 8:42 AM CDT Pulse 79 01/24/2025 8:42 AM CDT Temperature 36.6 C (97.8 F) 01/24/2025 8:42 AM CDT Respiratory Rate 20 01/24/2025 8:42 AM CDT Oxygen Saturation 95% 01/24/2025 8:42 AM CDT Inhaled Oxygen Concentration - - Weight 77.1 kg (170 lb) 01/24/2025 8:42 AM CDT Height 167.6 cm (5' 6) 01/24/2025 8:42 AM CDT Body Mass Index 27.44 01/24/2025 8:42 AM CDT Plan of Treatment Health Maintenance Due Date Last Done Comments Pre-Diabetes and Diabetes Screening 1965 COLORECTAL SCREENING 2008 Colorectal Cancer Screening 2008 FIT-DNA Q 3 years 2008 FIT/FOBT Q 1 year 2008 Flex Sig/CT Colonography Q 5 years 2008 ZOSTER VACCINE (1 of 2) 2013 BREAST CANCER SCREENING 06/21/2014 06/21/2013 INFLUENZA VACCINE (#1) 2025 , 08/10/2021, 07/06/2019, Additional history exists COVID-19 Vaccine (3 - 2024-2 6 season) 2025 05/06/2021, 04/12/2021 DTAP/TDAP/TD VACCINES (2 - T d or Tdap) 08/10/2028 08/10/2018 RSV VACCINE (60+ or ) (1 - 1-dose 75+ series) 2038 Insurance [facility] OPTIONS PPO [id number] RX [employer] Member Subscriber Plan / Payer (Ef fective 2019-Present) Name:Nirmala Trevizo Relation to Subscriber:Self Name:Nirmala Trevizo Subscriber ID:Not on file Payer ID:Not on file Group ID:[id number] Type:RX Commercial Address: [place], [place] [facility] [address] Care Teams Marketing Database Consultant Relationship Specialty Start Date End Date Jonh Baltazar MD [address] [place] [id number] PCP - General Family Practice 09/19/19
--- OUTSIDE RECORDS SUMMARY | 2025-08-16 00:43 | XMS_ITS | Clinical Summary ---
Author Organization [facility] Address [address] [place] [address] Care Team Providers Care Financial Analyst Intern Name Role Phone Rose Marie Baltazar MD Primary Care Provider [phone] Allergies Active Allergy Reactions Criticality Noted Date Comments Sulfa (Sulfonamide Antibiotics) Rash Medium 09/18 Sulfasalazine Rash Medium 03/31/2018 Medications cyanocobalamin (Vitamin B-12) 1,000 mcg/mL injection INJECT 1 ML INTRAMUSCULARLY ONCE A MONTH 11/14/19 15 Active cholecalcifero l (VITAMIN D-3) 50,000 unit capsule TAKE 1 CAPSULE BY MOUTH WEEKLY 08/15/20 22 Active estradioL (ESTRACE) 0.01 % (0.1 mg/gram) vaginal cream INSERT 1/2 APPLICATORFUL VAGINALLY 3 TIMES A WEEK AT NIGHT 08/12/20 22 Active estradioL (VIVELLE-DOT) 0.05 mg/24 hr APPLY 1 PATCH TOPICALLY TO THE SKIN 2 TIMES EVERY WEEK 08/12/20 22 Active naproxen (NAPROSYN) 500 mg tablet Take 1 tablet (500 mg total) by mouth 2 (two) times a day 08/20/20 22 Active albuterol HFA (PROVENTIL HFA,VENTOLIN HFA,PROAIR HFA) 90 mcg/actuation inhaler Inhale 2 puffs every 4 (four) hours as needed 09/13/20 22 Active testosterone (ANDROGEL) 1 % (25 mg/2.5gram) gel in packet Place 25 mg on the skin daily Active Active Problems Problem Noted Date Diagnosed Date Cervical disc disease 10/24/2019 DDD (degenerative disc disease), lumbar 10/24/19 20 Anxiety 08/10/2019 History of cholecystectomy 03/25/2017 Cervical cancer 09/10/2011 Immunizations Immunization Administration Dates Next Due Hep A, Adult 07/06/2019,08/10/2018 Influenza, Quadrivalent, Rec ombinant, Egg Free, Preservative Free, Intramuscular 07/06/2019 Influenza, Quadrivalent, Spl it, Preservative Free, Intramuscular 07/02/2018 Influenza, Trivalent, IM (MDV) 08/10/2021 Tdap 08/10/2018 Surgical History Surgery Date Site/Laterality Comments [place] TOTAL ABDOMINAL HYSTERECT W/WO RMVL TUBE OVARY Hysterectomy - (Added by TW Conv) GALLBLADDER SURGERY Gallbladder Surgery - (Added by TW Conv) CHOLECYSTECTOMY Medical History Medical History Date Comments Other abnormal and inconclus clark findings on diagnostic imaging of breast Mammogram abnormal - ( Added by TW Conv) Stress incontinence Female stres s incontinence - (Added by TW Conv) Cystocele, unspecified (CODE) Cy stocele - (Added by TW Conv) Residual hemorrhoidal skin tags External hemorrhoids with complication - (Added by TW Conv) Colon cancer (HCC) Family History Medical History Relation Name Comments COPD Father Family history of chronic obstructive pulmonary disease - (Added by TW Conv) Hypertension Father Family history of hypertension - (Added by TW Conv) Heart disease Maternal Grandfather Family history of cardiac disorder - (Added by TW Conv) Enuresis Mother Urinary inconti nence - (Added by TW Conv) Hypertension Mother Family history of hypertension - (Added by TW Conv) Lung cancer Mother Family history of lung cancer - (Added by TW Conv) Pancreatic cancer Sister Family his tory of pancreatic cancer - (Added by TW Conv) Relation Name Status Comments Father Maternal Grandfather Mother Sister Social History Tobacco Use Types Packs/Day Years Used Date Smoking Tobacco: Never Smokeless Tobacco: Never Tobacco Cessation:Counseling Given: Not Answered Alcohol Use Standard Drinks/Week Comments Yes 0 (1 standard drink = 0.6 oz pur e alcohol) social AUDIT-C Answer Date Recorded Q1: How often do you have a drink containing alc ohol? Never 07/02/2021 Average Number of Drinks Not on file 021 Q3: How often do you have si x or more drinks on one occasion? Never 07/02/2021 Comments No Sex and Gender Information Value Date Recorded Sex Assigned at Not on file Legal Sex Female 2:00 AM PLATFORM OPERATIONS DIRECTOR Gender Identity Not on file Sexual Orientation Not on file Obstetrics History Para Term AB IAB SAB Ectopic Multiple Livin g Live Births 2 2 2 2 Date Outcome GA Total Labor Labor/2nd/3rd Weight Sex Type Anes PTL Diana A1 A5 Name Clin Term Term Last Filed Vital Signs Vital Sign Reading Time Taken Comments Blood Pressure 108/72 09/02/2023 3:38 PM PLATFORM OPERATIONS DIRECTOR Pulse 89 09/02/2023 3:38 PM PLATFORM OPERATIONS DIRECTOR Temperature 36.7 C (98 F) 09/02/2023 3:38 PM PLATFORM OPERATIONS DIRECTOR Respiratory Rate 16 09/02/2023 3:38 PM PLATFORM OPERATIONS DIRECTOR Oxygen Saturation 95% 09/02/2023 3:38 PM PLATFORM OPERATIONS DIRECTOR Inhaled Oxygen Concentration - - Weight 77.7 kg (171 lb 3.2 oz) 09/02/2023 3:38 P M PLATFORM OPERATIONS DIRECTOR Height 167.6 cm (5' 5.98) 09/02/2023 3:38 PM CS T Body Mass Index 27.65 09/02/2023 3:38 PM PLATFORM OPERATIONS DIRECTOR Plan of Treatment Health Maintenance Due Date Last Done Comments Breast Cancer Screening-Mammogram 1965 Colon Cancer Screening-Colonoscopy 1965 Depression Screening 1965 Hepatitis C Screening 1965 Hepatitis B Screening 1981 Regular Well Visit/Exam 18-64 1981 Zoster Vaccine (1 of 2) 2013 Covid-19 Vaccine ( season) 2025 05/06/2021, 04/12/2021 Influenza Vaccine (#1) 2025 , 07/06/2019, 07/02/2018 DTaP/Tdap/Td Vaccine (2 - Td or Tdap) 08/10/2028 08/10/2018 Cervical Cancer Screening Discontinued 2022, 08/27/2022, 08/21/2021, Additional history exists Pneumococcal vaccine <65 Aged Out No longer eligible based on patient's age to complete this topic Procedures Procedure Name Priority Date/Time Associated Diagnosis Comments PAP AND HIGH RISK HPV, REFLEX TO GENOTYPING Routine 09/02/2023 4:52 PM PLATFORM OPERATIONS DIRECTOR Chemotherapy-induce d thrombocytopenia Malignant neoplasm of endocervix (HCC) from Last 3 Months or Most Recently Relevant to Health Maintenance Results * Pap and High Risk HPV and Genotyping (Cytology Component) (09/02/2023 4:52 PM PLATFORM OPERATIONS DIRECTOR) Thin prep (Pap test) 09/02/2023 4:52 PM PLATFORM OPERATIONS DIRECTOR 09/02/2023 6:04 PM PLATFORM OPERATIONS DIRECTOR Narrative PATHOLOGY [facility] - 09/08/2023 7:30 AM PLATFORM OPERATIONS DIRECTOR EPIC results best viewed via link to PDF [facility] [place] [address] Note to Patients: This report may contain a detailed description of human tissue sent by a health care provider to the laboratory for pathologic evaluation. The content of this report is essential for diagnosis and may provide important critical findings. This information may be unfamiliar to patients to review without a medical professional present. It is advised that the patient review this report in the presence of a health care provider who can answer questions and explain the details. CYTOPATHOLOGY REPORT FINAL Patient Name: NIRMALA IZAGUIRRE Gender: Elda : 1965 (Age: 58) Address: [address] [place] [address] Hospital #: [id number] Service: UMBRELLA SUPERVISOR Location: Patient Type: [facility] SPECIMEN Taken: 09/02/2023 Received: 09/02/2023 Accessioned: 09/03/2023 Reported: 09/08/2023 Physician(s): Chong Zamarripa M.D. FINAL INTERPRETATION SOURCE OF SPECIMEN Liquid based Thin Prep pap with HPV: STATEMENT OF ADEQUACY - Satisfactory for evaluation, vaginal smear GENERAL CATEGORIZATION: - Negative for squamous intraepithelial lesion or malignancy Comments (Normal-Negative for High Risk HPV) HPV HR 16 vaginal- Negative HPV HR 18 vaginal- Negative HPV HR non 16/18 vaginal- Negative Comment: The following Other High Risk HPV types were not detected: 31, 33, 35, 39, 45, 51, 52, 56, 58, 59, 66, and 68 ADDITIONAL INFORMATION Testing was performed using the jacobo HPV assay ([employer] This test has been modified from the gas regulator repairer helper's instructions. Its performance characteristics were determined by [facility] in a manner consistent with CLIA requirements. This test has not been cleared or approved by the U.S. Food and Drug Administration. Test Performed by: [place] [address] Rim Buster: Dwayne Taylor M.D. Ph.D.; CLIA# [id number] [facility]/09/08/2023 07:30 DAE Bach(ASCP) Report Electronically Reviewed and Signed Out By DAE Bach(ASCP) 09/08/2023 07:30:50 Cervicovaginal Cytology (Pap Test) Disclaimer: The Pap test is a screening test used to detect cervical cancer and its precursors; it is not a diagnostic procedure. False negative and false positive results do occur. Pap test results should be interpreted in the context of pertinent clinical information and biopsy results as indicated. [facility] Clinical Laboratory Improvement Amendments (CLIA) mandate that cytologic and histologic results be correlated for laboratory quality liaison & improvement standards. FOR ALL HIGH-GRADE CASES we request submission of follow-up histological material and/or reports that have not been previously provided so that we may fulfill said required standards. Gross Description A. Liquid based Thin Prep pap with HPV: Vaginal - Screening ThinPrep Clinical Diagnosis and History Last Menstrual Period: 10 yrs ago The patient is a 58 year old female with adenjo ca of the endocervix. Report Images and scanned documents, if included only viewable in PDF version The performance characteristics of some immunohistochemical stains, in-situ hybridization and fluorescence in-situ hybridization tests and immunophenotyping by flow cytometry cited in this report (if any) were determined by the Surgical Pathology Department at [facility] as part of an ongoing senior quality control inspector program and in compliance with federally mandated regulations drawn from the Clinical Laboratory Improvement Act of 1988 (CLIA '88). Some of these tests rely on the use of analyte specific reagents and are subject to specific labeling requirements by the US Food and Drug Administration. Such diagnostic tests may only be performed in a facility that is certified by the Department of Health and Human Services as a high complexity laboratory under CLIA '88. The FDA has determined that such clearance or approval is not necessary. This test is used for clinical purposes. It should not be regarded as investigational or for research. Nevertheless, federal rules concerning the medical use of analyte specific reagents require that the following disclaimer be attached to the report: This test was developed and its performance characteristics determined by the Surgical Pathology Department of [facility]. It has not been cleared or approved by the U. S. Food and Drug Administration. Chong Zamarripa MD LAB CYTOLOGY ORDERABLES Final Result Performing Organization Address City/State/[facility] Co de Phone Number PATHOLOGY [facility] [address] [place], [place] [phone] from Last 3 Months or Most Recently Relevant to Health Maintenance Insurance [facility] CHO[facility] PLUS [facility] CHOICE PLUS [place] [id number] [facility] CHOICE PLUS Care Teams Financial Analyst Intern Relationship Specialty Start Date End Date Rose Marie Baltazar MD [address] [place] [address] PCP - General 04/17/17
[2025-08-16 09:16] VITALS: BP 123/69; PULSE 68; RESP 18; TEMP 36.6; O2SAT 98
[2025-08-16] MEDS: LACTATED RINGERS 1,000 ML 150 ML IV CONT (09:22)
--- NOTE | 2025-08-16 10:01 | WPDANESEPPF ---
Anes - Initial Pre Proc Eval Procedure: Operation Date: 08/16/25 09:45 Proposed Procedures p Esophagogastroduodenoscopy EGD - Sinan Pang MD Date/Time: 08/16/25 10:01 Surgeon: Sinan Pang MD Pre Op Diagnosis: GERD Patient Data Age: 60 Gender: F Height: 1.68 m Weight: 78 kg Last Vital Signs Temp 36.6 C 08/16/25 09:16 Pulse 68 08/16/25 09:16 Resp 18 08/16/25 09:16 BP 123/69 08/16/25 09:16 Pulse Ox 98 08/16/25 09:16 Allergies Allergy/AdvReac Type Severity Reaction Status Date / Time Sulfa (Sulfonamide Allergy Intermediate Rash Verified 08/16/25 09:11 Antibiotics) Home Medications ?Medication ?Instructions ?Recorded ?Confirmed ?Type cyanocobalamin (vitamin B-12) 1,000 mcg subcut MONTHLY #1 mL 06/11/22 08/16/25 Rx 1,000 mcg/mL injection solution estradiol 0.01% (0.1 mg/gram) 0.1 g vaginal DAILY 10/08/22 08/16/25 History vaginal cream estradiol 0.05 mg/24 hr semiweekly 1 patch transdermal 2XW 10/08/22 08/16/25 History transdermal patch naproxen 500 mg tablet See Rx Instructions .Route 10/18/24 08/16/25 Rx .COMPLEX PRN Pain #180 tabs famotidine 40 mg tablet 40 mg PO QHS #90 tabs 03/10/25 08/16/25 Rx ergocalciferol (vitamin D2) 1,250 50,000 unit PO WEEKLY #14 caps 04/18/25 08/16/25 Rx mcg (50,000 unit) capsule bupropion HCl 300 mg 24 hr tablet, 300 mg PO QAM #90 tabs 06/14/25 08/16/25 Rx extended release Testosterone Gel topical 07/13/25 History progesterone micronized 100 mg 100 mg PO DAILY 07/13/25 08/16/25 History capsule Patient hx anesthesia problems: other (aspiration) Family hx anesthesia problems: none Results Review: All pre-operative results and documents have been reviewed as part of the pre-operative evaluation. [facility] Past Medical History Medical History Anxiety Sciatica, right side Arthralgia Wart on thumb Keloid scar of skin Right lateral epicondylitis Paresthesia and pain of extremity Tick bite Nail abnormalities Arthralgia Gastro-esophageal reflux disease without esophagitis Surgical History Surgical History Hx of cholecystectomy H/O: hysterectomy Family History Family History Grandparent Diabetes mellitus Family history of cardiovascular disease Sibling Family history of pancreatic cancer Mother Family history of thyroid disease Family history of lung cancer Father Family history of chronic obstructive pulmonary disease Other Cerebrovascular accident Family history of elevated blood lipids Hypertension Social History Social History Smoking status: Never smoker Alcohol intake: current Drinks per week: 0 Alcohol use details: pt states rarely Substance use: never Substance use type: does not use Do You Feel Safe in your Home?: Yes Lack of Transportation: No Lack of Food: Never True Current Housing: I Have Housing Concerned About Future Housing: No Difficulty Paying Gas/Electric Bills: No Difficulty Paying for Meds: No Currently Unemployed: No Education: Master's Degree or Higher Difficulty w/ Childcare or Family Care: No Living arrangements: alone Spiritual care concerns: No Anes - Eval Final PreProcedure Day of Procedure 08/16/25 10:01 Patient weight: overweight Heart: regular rate and rhythm Lungs: clear to auscultation Airway: Mallampati scale class II Neurological: alert and oriented Last oral intake: >/= 8 hours ASA classification: II Emergent: no Anesthetic plan: proceed Anesthesia type and monitoring: general GIVS and standard monitoring Results Review: All pre-operative results and documents have been reviewed as part of the pre-operative evaluation. Informed Consent: The patient's anesthetic plan and its attendant risks and benefits were discussed with the patient/family/POA. Questions were solicited and answers provided to the satisfaction of the patient/family/POA.
--- NOTE | 2025-08-16 10:27 | PM.HPGS ---
History of Present Illness History of Present Illness Consent: Risks, benefits, and alternatives have been discussed and questions answered. Patient agrees to proceed with procedure. Chief complaint: GERD Narrative: Nirmala Trevizo is a 60 year old female with gerd on famotidine Review of Systems Review of Systems: All systems reviewed & are unremarkable except as noted in HPI and below PMFSH Past Medical History Medical History Anxiety Sciatica, right side Arthralgia Wart on thumb Keloid scar of skin Right lateral epicondylitis Paresthesia and pain of extremity Tick bite Nail abnormalities Arthralgia Gastro-esophageal reflux disease without esophagitis Surgical History Surgical History Hx of cholecystectomy H/O: hysterectomy Family History Family History Grandparent Diabetes mellitus Family history of cardiovascular disease Sibling Family history of pancreatic cancer Mother Family history of thyroid disease Family history of lung cancer Father Family history of chronic obstructive pulmonary disease Other Cerebrovascular accident Family history of elevated blood lipids Hypertension Social History Social History Smoking status: Never smoker Alcohol intake: current Drinks per week: 0 Alcohol use details: pt states rarely Substance use: never Substance use type: does not use Do You Feel Safe in your Home?: Yes Lack of Transportation: No Lack of Food: Never True Current Housing: I Have Housing Concerned About Future Housing: No Difficulty Paying Gas/Electric Bills: No Difficulty Paying for Meds: No Currently Unemployed: No Education: Master's Degree or Higher Difficulty w/ Childcare or Family Care: No Living arrangements: alone Spiritual care concerns: No Meds Home Medications and Allergies Home Medications ?Medication ?Instructions ?Recorded ?Confirmed ?Type cyanocobalamin (vitamin B-12) 1,000 mcg subcut MONTHLY #1 mL 06/11/22 08/16/25 Rx 1,000 mcg/mL injection solution estradiol 0.01% (0.1 mg/gram) 0.1 g vaginal DAILY 10/08/22 08/16/25 History vaginal cream estradiol 0.05 mg/24 hr semiweekly 1 patch transdermal 2XW 10/08/22 08/16/25 History transdermal patch naproxen 500 mg tablet See Rx Instructions .Route 10/18/24 08/16/25 Rx .COMPLEX PRN Pain #180 tabs famotidine 40 mg tablet 40 mg PO QHS #90 tabs 03/10/25 08/16/25 Rx ergocalciferol (vitamin D2) 1,250 50,000 unit PO WEEKLY #14 caps 04/18/25 08/16/25 Rx mcg (50,000 unit) capsule bupropion HCl 300 mg 24 hr tablet, 300 mg PO QAM #90 tabs 06/14/25 08/16/25 Rx extended release Testosterone Gel topical 07/13/25 History progesterone micronized 100 mg 100 mg PO DAILY 07/13/25 08/16/25 History capsule Allergies Allergy/AdvReac Type Severity Reaction Status Date / Time Sulfa (Sulfonamide Allergy Intermediate Rash Verified 08/16/25 09:11 Antibiotics) Vital Signs Vital Signs - 24 hr 08/16/25 09:16 Temperature 97.8 F Pulse Rate 68 Respiratory Rate 18 Blood Pressure 123/69 Pulse Oximetry 98 Exam Const: General: comfortable and no acute distress HENMT: Face/Nose/Sinus: Normal nares present Eyes: General: appearance normal, both eyes and all related structures Neck: Neck: no JVD Resp: Auscultation: clear to auscultation bilaterally Cardio: Rate: regular rate Rhythm: regular rhythm GI: Inspection: non-distended GI Palp: Yes Soft to palpation Skin: General skin exam: normal color Extrem: General: normal to inspection Psych: Mental Status: mental status grossly normal Assessment and Plan Assessment and plan (1) Chronic GERD: Code(s): K21.9 - Gastro-esophageal reflux disease without esophagitis Status: Acute Assessment and Plan: egd with bx
--- NOTE | 2025-08-16 10:35 | S_PTH ---
PATIENT: Nirmala Trevizo LOC: [facility]#:[id number] AGE/SX: 60/F ROOM: RE08/16/[address]: Sinan Pang MD : 1965 BED: DIS: 08/16/2025 SPEC #: [id number] RECD: 08/16/25 11:25 STATUS: KAY REQ #: [id number] ALIX: 08/16/25 10:[address]: Sinan Pang DEPT: [facility] Surgical RECD BY: Dianna Valadez ENTERED: 08/16/25 11:27 SP TYPE: Surgical OTHR DR: Amna Hays MD Tissues: A - Esophageal Biopsy B - Gastric Biopsy Procedures: Hematoxylin and Eosin Stain Gross and Microscopic Level 4
[2025-08-16 10:39] VITALS: BP 99/66; PULSE 81; RESP 18; O2SAT 95
[2025-08-16 10:49] VITALS: BP 107/73; PULSE 78; RESP 20; O2SAT 96
[2025-08-16 10:59] VITALS: BP 118/79; PULSE 63; RESP 13; O2SAT 94
== END 2025-08-16 11:15 | disposition home or self-care (01) ==
PROVIDERS: PCP Family Medicine; Referring Provider Internal Medicine Gastroenterology; Visit Provider Internal Medicine Gastroenterology
PROC: 0DJ08ZZ Inspection of Upper Intestinal Tract, Via Natural or Artificial Opening Endoscopic (ICD-10-PCS; CPT 43239; principal; 2025-08-16 09:45)
DX: K21.9 Gastro-esophageal reflux disease without esophagitis (principal); K44.9 Diaphragmatic hernia without obstruction or gangrene; K29.50 Unspecified chronic gastritis without bleeding
CPT/HCPCS: 43239; 88305; J2003; J2704; J7120